=== PATIENT | female | born 2000 | race African-American/Black ===

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

== ENCOUNTER 2021-09-05 18:17 | Emergency (ER) | payer MEDICAID ==
[~2021-09-05] VITALS: Ht 170.2 cm; Wt 66.0 kg
[2021-09-05] MEDS ORDERED: ACETAMINOPHEN 325MG TABLET PO STA (22:31)
[2021-09-06] MEDS ORDERED: ONDANSETRON 4MG ODT PO ONE (00:45)
[2021-09-06] MEDS ORDERED: KETOROLAC 60MG/2ML VIAL IM ONE (00:45)
[2021-09-06 00:55] VITALS: BP 120/82
[2021-09-06 01:26] LABS: BASOPHILS % 0.3 % (0.0-2.0); EOSINOPHILS % 1.6 % (0.0-5.0); HEMATOCRIT. 39.6 % (36.0-48.0); HEMOGLOBIN. 12.8 g/dL (12.0-16.0); LYMPHOCYTES % 35.1 % (20.0-50.0); MEAN CORPUSCULAR HEMOGLOBIN 25.8 pg (28.0-32.0); MEAN CORPUSCULAR VOLUME 79.9 fL (81.0-99.0); MEAN PLATELET VOLUME 8.3 fl (7.4-10.4); MONOCYTES % 8.8 % (2.0-8.0); NEUTROPHILS % 54.2 % (40.0-76.0); PLATELET 217 x1000/uL (130-400); RED BLOOD CELL COUNT 4.95 mill/uL (4.2-5.4); RED CELL DISTRIBUTION WIDTH 14.9 % (11.6-14.6)
[2021-09-06 02:17] LABS: CLARITY URINE CLEAR (CLEAR); COLOR URINE DARK YELLOW (YELLOW); KETONES URINE TRACE (NEGATIVE); LEUKOCYTE ESTERASE URINE NEGATIVE (NEGATIVE); NITRITE URINE POSITIVE (NEGATIVE); OCCULT BLOOD URINE TRACE (NEGATIVE); PH URINE 5.5 (4.5-8.0); PROTEIN URINE TRACE (NEGATIVE); SPECIFIC GRAVITY URINE 1.032 (1.005-1.030)
[2021-09-06 02:47] LABS: CHLORIDE 106 mEq/L (98-107)
[2021-09-06 03:00] LABS: B-HCG QUANTITATIVE < 1 mIU/mL (<3)
[2021-09-06] MEDS ORDERED: NITR-87 MT (03:41)
== END 2021-09-06 04:05 | disposition home or self-care (01) ==
LOC: ER 18:17
DX: N39.0 Urinary tract infection, site not specified (principal); N83.291 Other ovarian cyst, right side; Z32.02 Encounter for pregnancy test, result negative; E87.6 Hypokalemia; R03.0 Elevated blood-pressure reading, without diagnosis of hypertension
CPT/HCPCS: 36415; 76830; 76856; 80053; 81003; 81025; 83690; 84702; 85025; 96372; 99284; J1885; Q0162

== ENCOUNTER 2023-10-22 14:59 | Emergency (ER) | payer MEDICAID ==
[~2023-10-22] VITALS: Ht 177.8 cm; Wt 82.0 kg
[~2023-10-22 14:59] MED LIST: AMOX1TAB16 MT; NAPR-681 MT; NITR-87 MT
[2023-10-22 15:02] VITALS: O2SAT 99
[2023-10-22] MEDS: KETOROLAC 60MG/2ML VIAL IM STA (16:24)
[2023-10-22] MEDS: METOCLOPRAMIDE HCL 10MG/2ML VIAL IM ONE (16:24)
[2023-10-22 16:29] LABS: CLARITY URINE CLEAR (CLEAR); COLOR URINE YELLOW (YELLOW); GLUCOSE URINE NEGATIVE (NEGATIVE); KETONES URINE NEGATIVE (NEGATIVE); LEUKOCYTE ESTERASE URINE NEGATIVE (NEGATIVE); NITRITE URINE NEGATIVE (NEGATIVE); OCCULT BLOOD URINE NEGATIVE (NEGATIVE); PH URINE 6.5 (4.5-8.0); PROTEIN URINE NEGATIVE (NEGATIVE); SPECIFIC GRAVITY URINE 1.006 (1.005-1.030); UROBILINOGEN URINE 0.2 E.U./dL (0.2-1.0)
[2023-10-22 16:47] LABS: BASOPHILS % 1.2 % (0.0-2.0); DIFFERENTIAL COMMENT 0; EOSINOPHILS % 2.5 % (0.0-5.0); HEMOGLOBIN. 11.8 g/dL (12.0-16.0); LYMPHOCYTES % 52.1 % (20.0-50.0); MEAN CORPUSCULAR HEMOGLOBIN 23.3 pg (28.0-32.0); MEAN CORPUSCULAR HGB CONC 31.1 g/dL (31.0-37.0); MEAN CORPUSCULAR VOLUME 74.8 fL (81.0-99.0); MEAN PLATELET VOLUME 8.1 fl (7.4-10.4); MONOCYTES % 9.3 % (2.0-8.0); NEUTROPHILS % 34.9 % (40.0-76.0); PLATELET 253 x1000/uL (130-400); RED BLOOD CELL COUNT 5.07 mill/uL (4.2-5.4); RED CELL DISTRIBUTION WIDTH 17.5 % (11.6-14.6); WHITE BLOOD COUNT 5.1 x1000/uL (4.5-11.0)
[2023-10-22 16:54] LABS: CHLORIDE 109 mEq/L (98-107); SODIUM 142 mEq/L (136-145)
[2023-10-22 16:55] LABS: CALCIUM 9.9 mg/dL (8.7-10.4); CARBON DIOXIDE 28 mEq/L (21-32)
[2023-10-22 17:00] LABS: CREATININE 0.7 mg/dL (0.6-1.0); GLUCOSE 81 mg/dL (70-105); UREA NITROGEN BLOOD 10 mg/dL (9-23)
[2023-10-22] MEDS ORDERED: ONDA4TAB50 PO (17:40)
[2023-10-22] MEDS ORDERED: AMOX1TAB16 PO (17:40)
[2023-10-22] MEDS ORDERED: NAPR-681 MT (17:40)
[2023-10-22 18:15] VITALS: BP 116/85; PULSE 80; RESP 16; TEMP 97.8
== END 2023-10-22 18:17 | disposition home or self-care (01) ==
LOC: ER 14:59
DX: R51.9 Headache, unspecified (principal); H66.92 Otitis media, unspecified, left ear
CPT/HCPCS: 80048; 81003; 81025; 85025; 36415; 70450; 96372; 99285; J1885; J2765; Z7610